=== PATIENT | male | born 1975 | race Caucasian/White ===

== ENCOUNTER 2017-04-08 07:51 | Observation (INO) | payer BC ==
[2017-04-08] VITALS (17 sets, daily range): BP systolic 104–159; BP diastolic 62–95; PULSE 43–91; TEMP 36.5–36.8; O2SAT 92–100; Ht 162.6 cm; Wt 75.3 kg
[~2017-04-08] VITALS: Ht 162.6 cm; Wt 75.3 kg
[~2017-04-08 07:51] MED LIST: ASPI325T60 PO; SULF800T23 PO
--- NOTE | 2017-04-08 08:20 | History & Physical Bridge Note ---
H&P Re-Evaluation Bridge Note: I have examined the patient, reviewed the History & Physical and in the interval since the performance of the History & Physical I have noted the following changes of clinical significance: No changes noted
--- NOTE | 2017-04-08 08:21 | Pre Sedation Assessment ---
Pre Sedation Assessment General Date of Sedation: Apr 08, 2017. Review Cardiovascular: no edema, no murmur, + bradycardia, + irregularly irregular Lungs: lungs clear, normal breath sounds Pre-Sedation Airway Assessment Smoking Status: Never Smoker Hx of Sleep Apnea: Yes Hx of difficult intubation: No Short Thick Neck: No Thyro-mental Distance: < or =3 Finger Breadths Oral Cavity: Dental Abnormalities Mallampati Classification: Class II ASA Classification: Class II Procedure Planning Contraindications for Sedation: None Current Medications Reviewed: Yes Notes The planned sedation has been discussed with the patient. Informed Consent was obtained. I have identified the patient, determined the appropriateness of sedation and have assessed the patient immediately prior to the procedure. All medicine(s) and interventions are by my order.
--- NOTE | 2017-04-08 08:40 | History & Physical Bridge Note ---
H&P Re-Evaluation Bridge Note: I have examined the patient, reviewed the History & Physical and in the interval since the performance of the History & Physical I have noted the following changes of clinical significance: Patient recently seen as an outpatient by Dr Aguilar on 04/02/17. No presents for planned repeat ablation therapy. EKg on 04/02/17 revealed rate controlled atrial flutter. Since he has not been on anticoagulation YURY planned this am in advance of repeat flutter ablation to exclude LA appendage thrombus. Informed consent has been obtained by Dr Aguilar for EP procedure today. Informed consent obtained by the undersigned for YURY with moderate sedation. No changes noted
[2017-04-08] MEDS ORDERED: FENTANYL CITRATE INJ 50 MCG/1 ML 2 ML VIAL ONE ×3 (09:26→11:11)
[2017-04-08] MEDS ORDERED: BENZOCAIN/TETRACA/BUTAM SPRAY 200 APPLN/20 GM SPRY ONE (09:26)
[2017-04-08] MEDS ORDERED: LIDOCAINE HCL 2% VISC SOLN 20 ML UDC ONE (09:27)
[2017-04-08] MEDS ORDERED: CANNULA ONE (09:27)
[2017-04-08] MEDS ORDERED: MIDAZOLAM HCL 1 MG/ML 2ML VIAL ONE ×3 (09:27→11:53)
--- NOTE | 2017-04-08 09:41 | Pre Sedation Assessment ---
Pre Sedation Assessment General Date of Sedation: Apr 08, 2017. Vital Signs Past 12 Hours Date Time Temp Pulse Resp B/P (MAP) Pulse Ox O2 Delivery O2 Flow Rate FiO2 04/08/17 08:53 36.8 64 12 136/83 (100) 98 Room Air Review Cardiovascular: no edema, no murmur, + bradycardia, + irregularly irregular Lungs: lungs clear, normal breath sounds Pre-Sedation Airway Assessment Smoking Status: Never Smoker Hx of Sleep Apnea: Yes Hx of difficult intubation: No Short Thick Neck: No Thyro-mental Distance: > 3 Finger Breadths Oral Cavity: WNL Mallampati Classification: Class III ASA Classification: Class I NPO Status Date of Last Intake of Fluids: Apr 07, 2017 Time of Last Intake of Fluids: 2358 Date of Last Intake of Solids: Apr 07, 2017 Time of Last Intake of Solids: 2358 Procedure Planning Contraindications for Sedation: None Current Medications Reviewed: Yes Notes The planned sedation has been discussed with the patient. Informed Consent was obtained. I have identified the patient, determined the appropriateness of sedation and have assessed the patient immediately prior to the procedure. All medicine(s) and interventions are by my order.
--- NOTE | 2017-04-08 10:05 | Post Sedation Assessment ---
Post Sedation Assessment General Date of Sedation Apr 08, 2017. Vital Signs: Vital Signs Past 12 Hours Date Time Temp Pulse Resp B/P (MAP) Pulse Ox O2 Delivery O2 Flow Rate FiO2 04/08/17 08:53 36.8 64 12 136/83 (100) 98 Room Air Post Procedure Recovery Score Activity: (2) Moves 4 extremities * Respiration: (2) Deep breath/cough Circulation: (2) +/-20% PreAnes Value Consciousness: (1) Arouseable (by name) Oxygen Saturation: (2) > 92% On Room Air Discharge Sedation Level of Care: Phase I Post Sedation Plan On clinical assessment, the patient appears to have tolerated the sedation without complications. Patient is recovering as anticipated. Patient will continue to be monitored by nursing and may be discharged when sedation discharge criteria are met per below protocol. Upon Completions of procedure and additional 15 minutes continue every 5 minute vital signs and the P.A.R. score; then discharge to a Phase I or Fast Track to Phase II per the following guidelines: * Discharge Patient to appropriate Phase II area if PAR is 8 or greater or return to pre- procedure baseline. The post - procedure orders will be as directed. * If PAR score is less than 8 or not return to pre-procedure baseline then patient will follow Phase I monitoring till PAR is reached for Phase II. The Phase I may be done in procedure room or may call to secure a Phase I area. * If naloxone or flumazenil are used for reversal, hold in Phase I for an additional 60 -120 minutes before discharge to Phase II. Please call the Sedation Physician to re-evaluate and complete post-note for discharge to Phase II area. Do NOT discharge from procedure sedation or Phase 1 until post- sedation evaluation note is complete by procedure /sedation MD Sedation Discharge Instructions to be given to the patient at discharge to home.
--- NOTE | 2017-04-08 10:09 | Cardiology Procedure Brief Nt ---
Preliminary Cardiology Note Procedure Date Apr 08, 2017. Pre-Procedure Diagnosis atrial flutter Post-Procedure Diagnosis No left atrial or left atrial appendage thrombus Procedure(s) Performed YURY Stockroom Clerk Branden Montero DO Shop Router(s) JUANITA Miles Estimated Blood Loss none Preliminary Findings Atrial flutter with controlled ventricular response was present during the YURY. There was no left atrial thrombus. There was no left atrial appendage thrombus. The LV and RV chamber size and systolic function were normal. The interatrial septum was intact without PFO or ASD. Recommendations Proceed with EP procedure as planned. Specimens non applicable Anesthesia Versed 4 mg IV, Fentanyl 125 mcg Complication(s) None Disposition Transition to Pre EP staging area after recovery.
[2017-04-08] MEDS ORDERED: LIDOCAINE HCL 2% 2 ML VIAL (20MG/ML) ONE (11:11)
[2017-04-08] MEDS ORDERED: PRLSR20 PO (11:13)
[2017-04-08] MEDS ORDERED: TRMCR515 TOP (11:13)
[2017-04-08] MEDS ORDERED: PROPOFOL IV EMULSION 10 MG/ML 20 ML VIAL IV ONE (11:56)
[2017-04-08] MEDS ORDERED: ONDANSETRON INJ 2 MG/ML 2 ML VIAL ONE (11:56)
[2017-04-08] MEDS ORDERED: HEPARIN SOD (PORCINE) 1000 UNIT/ML 10 ML VIAL ONE (12:03)
[2017-04-08] MEDS ORDERED: FENTANYL CITRATE INJ 50 MCG/1 ML 2 ML VIAL IV PRN (12:30)
[2017-04-08] MEDS ORDERED: EpHEDrine SULFATE INJ 50 MG/ML AMP IV PRN (12:30)
[2017-04-08] MEDS ORDERED: ONDANSETRON INJ 2 MG/ML 2 ML VIAL IV PRN (12:30)
[2017-04-08] MEDS ORDERED: ATROPINE SULFATE 0.1 MG/ML 5ML SYR IV PRN (12:30)
--- NOTE | 2017-04-08 13:56 | [facility] Post Operative Brief Note ---
Immediate Operative Summary Operative Date Apr 08, 2017. Pre-Operative Diagnosis p atrial flutter Post-Operative Diagnosis same and bidirectional block across the CTI Procedure(s) Performed EPS, 3d mapping of the His bundle and C/S os, radiofrequency ablation of the CTI, synchronized cardioversion at 200J Surgeon violet damico Pharmacy Technician Surgeon(s) none Estimated Blood Loss <5cc Findings See Below see official report Fluids (cc crystalloids) 600cc Specimens none Drains None Anesthesia Type MAC Complication(s) none Disposition Accompanied Pt To Recover: yes Disposition: PCU
[2017-04-08] MEDS ORDERED: ACETAMINOPHEN 325 MG TAB PO PRN (14:00)
--- NOTE | 2017-04-08 14:03 | Discharge Summary ---
Discharge Summary Date of Service Apr 08, 2017. Discharge Summary Admission Date: 04/08/2017 Discharge Date: Apr 09, 2017 Discharge Disposition: Home Principal Diagnosis: p. atrial flutter Secondary Diagnoses/Problems: probably LA NENA Procedures: EPS, 3d mapping of the C/S Os and His bundle, radiofrequency ablation of the CTI for atrial flutter and synchronized cardioversion for AFib Medication Reconciliation Continued Medications: Omeprazole (Prilosec) 20 Mg Capcr 20 MG PO DAILY, CAP Triamcinolone Acet (Triamcinolone Acetonide) 45 Appln/15 Gm Cr 1 APPLN TOP BID for 30 Days, #30 GM Admission Information Physical Exam (per Admitting): aaox3, NAD Supple, No JVD Irregular S1/S2, no murmur CTA b/l No w/r/r Soft NT/ND No edema b/l LE no focal deficits Skin intact Hospital Course Pt admitted for elective redo atrial flutter ablation due to recurrent atrial flutter. He had a YURY prior to the EPS ablation procedure to ensure no LUIS thrombus with Dr. Montero. Then he underwent EPS with ablation of CTI (he was also in Atrial fib and required a synchronized cardioversion during the EPS and ablation for the atrial flutter). He was monitored overnight and discharged home in a stable condition. Total time spent on discharge = 30 minutes This includes examination of the patient, discharge planning, medication reconciliation, and communication with other providers. Discharge Instructions ACTIVITY RECOMMENDATIONS: It is common to feel weak and fatigue for a few days. * Do not drive or operate any motorized equipment for the next 1 day. * Limit stair usage (2 or 3 trips a day only) for the next three days. * Do not lift anything heavier than 10 pounds for the next 7 days. * Do not engage in vigorous exercise or any sports for the next five days. * You may shower the day after your procedure, but do not immerse the area for three days. Cleanse the site gently with soap and water. SPECIAL CARE INSTRUCTIONS: * You may replace the pressure dressing or band-aid the morning after the procedure. * After your procedure, it is normal to have a small bruise or small lump at the site. Examine your site daily for any change in the bruise or lump, redness, swelling, drainage or numbness. Notify your doctor if any change. BLEEDING: * If there is a small amount of bleeding at the site, lie down and apply firm pressure with a clean cloth for ten minutes. When the bleeding stops, lie quietly keeping the procedure limb straight for six hours. Notify your doctor as soon as possible. * If the bleeding does not stop after ten minutes or if there is a large amount of bleeding or spurting, call 911 immediately. Continue to lie down and hold firm pressure until help arrives. SKIN IRRITATION: * You may experience some redness and/or swelling in the area where radiation was administered. If any skin irritation occurs, please contact your family physician. FOLLOW UP VISIT: Keep any scheduled doctor appointments.
--- NOTE | 2017-04-08 14:05 | Discharge Instructions ---
Discharge Instructions Date of Service Apr 08, 2017. Admission Reason for Admission: Atrial Flutter *Kylah Doing Neto* Discharge Discharge Diagnosis / Problem: p. atrial flutter Discharge Goals Goal(s): Improve function Activity Recommendations Activity Limitations: as noted below Lifting Limitations: no more than 10 pounds (do not do any heavy lifting or squating for 1 week) May Resume Sexual Activity: after one week, after two weeks Shower/Bathe: tomorrow Driving or Machine Use: resume 1 day after discharge . Instructions / Follow-Up Instructions / Follow-Up ACTIVITY RECOMMENDATIONS: It is common to feel weak and fatigue for a few days. * Do not drive or operate any motorized equipment for the next 1 day. * Limit stair usage (2 or 3 trips a day only) for the next three days. * Do not lift anything heavier than 10 pounds for the next 7 days. * Do not engage in vigorous exercise or any sports for the next five days. * You may shower the day after your procedure, but do not immerse the area for three days. Cleanse the site gently with soap and water. SPECIAL CARE INSTRUCTIONS: * You may replace the pressure dressing or band-aid the morning after the procedure. * After your procedure, it is normal to have a small bruise or small lump at the site. Examine your site daily for any change in the bruise or lump, redness, swelling, drainage or numbness. Notify your doctor if any change. BLEEDING: * If there is a small amount of bleeding at the site, lie down and apply firm pressure with a clean cloth for ten minutes. When the bleeding stops, lie quietly keeping the procedure limb straight for six hours. Notify your doctor as soon as possible. * If the bleeding does not stop after ten minutes or if there is a large amount of bleeding or spurting, call 911 immediately. Continue to lie down and hold firm pressure until help arrives. SKIN IRRITATION: * You may experience some redness and/or swelling in the area where radiation was administered. If any skin irritation occurs, please contact your family physician. FOLLOW UP VISIT: Keep any scheduled doctor appointments. Current Hospital Diet Patient's current hospital diet: Regular Diet Discharge Diet Recommended Diet: Regular Diet Procedures Procedures Performed: EPS, 3d mapping of the His bundle and C/S os, radiofrequency ablation of the CTI, synchronized cardioversion at 200J Pending Studies Studies pending at discharge: no Medical Emergencies . Who to Call and When: Medical Emergencies: If at any time you feel your situation is an emergency, please call 911 immediately. . Non-Emergent Contact Non-Emergency issues call your: [employer] Tallier . . "Provider Documentation" section prepared by Arlen Aguilar. . VTE Core Measure Inpt VTE Proph given/why not?: Treatment not indicated
[2017-04-08] MEDS ORDERED: PROPOFOL IV EMULSION 10 MG/ML 100 ML VIAL IV ONE (14:10)
--- NOTE | 2017-04-08 14:24 | Anesthesiology Progress Note ---
Anesthesia Post Op Note Date & Time Apr 08, 2017 at 14:24 Vital Signs Pain Intensity: 0 Vital Signs Past 12 Hours Date Time Temp Pulse Resp B/P (MAP) Pulse Ox O2 Delivery O2 Flow Rate FiO2 04/08/17 14:10 66 16 120/74 (89) 98 Room Air 04/08/17 14:00 67 16 123/79 (94) 99 Mask 4 04/08/17 11:10 57 16 125/68 (87) 96 Room Air 04/08/17 10:57 36.6 72 16 104/64 (77) 97 Room Air 04/08/17 10:45 65 16 104/86 (92) 97 Room Air 04/08/17 10:23 74 12 106/62 (77) 95 Room Air 04/08/17 10:13 80 10 120/77 (91) 96 Room Air 04/08/17 10:03 94 12 116/53 (74) 94 Nasal Cannula 2 04/08/17 10:00 91 14 128/63 93 Nasal Cannula 2 04/08/17 09:55 79 9 159/74 95 Nasal Cannula 2 04/08/17 09:50 80 12 132/88 96 Nasal Cannula 2 04/08/17 09:47 Nasal Cannula 2 04/08/17 09:45 79 13 121/68 93 Nasal Cannula 2 04/08/17 09:43 72 14 119/62 92 Nasal Cannula 2 04/08/17 09:39 75 24 140/85 100 Nasal Cannula 2 04/08/17 08:53 36.8 64 12 136/83 (100) 98 Room Air Notes Mental Status: alert / awake / arousable, participated in evaluation Nausea / Vomiting: adequately controlled Pain: adequately controlled Airway Patency, RR, SpO2: stable & adequate BP & HR: stable & adequate Hydration State: stable & adequate Anesthetic Complications: no major complications apparent
[2017-04-08] MEDS ORDERED: IV FLUIDS COMPLETED PRN (14:30)
--- NOTE | 2017-04-08 18:17 | TEE ---
*NOTICE TO RECEIVING DEMOCRAT AGENCY This information is strictly Confidential and protected under [place] law. [place] law prohibits you from making any further disclosure of this information unless further disclosure is expressly permitted by the written consent of the person to whom it pertains or is authorized by law. A general authorization for the release of medical or other information is not sufficient for this purpose. Hospital accepts no responsibility if the information is made available to any other person, INCLUDING THE PATIENT. Interpretation Summary * Name: GARLAND WOLFE Study Date: 04/08/2017 08:32 AM BP: 104/85 mmHg * Patient Location: Cardiopulmonary Lab HR: 94 * : 1975 (M/d/yyyy) Gender: Male Height: 65 in * Age: 42 yrs Ethnicity: CA Weight: 160 lb * Ordering Physician: Fanta Aguilar * Performed By: Yovani Gallagher RCS * * Reason For Study: A-Flutter, exclude left atrial thrombus prior to ablation * BSA: 1.8 m2 * -- Conclusions -- * No thrombus is detected in the left atrial appendage. * No left atrial mass or thrombus visualized. * There is trace mitral regurgitation. * There is a very subtle thin linear echodensity on the left atrial aspect of the posterior mitral valve leaflet consistent with a Lambl's excrescence. Procedure Details * YURY Probe #2 utilized for procedure. * The study was performed in Cardiopulmonary Department. * Time out was conducted by the physician, nurse, and medication reconciliation technician with positive identification of patient and procedure. * Informed consent for Transesophageal Echocardiogram was obtained prior to the procedure. * An intravenous line was placed. A topical anesthetic agent was used for oropharangeal anesthesia. A bite block was inserted. * The patient's vital signs, including blood pressure, heart rate, pulse oximetry and cardiac rhythm were monitored throughout the procedure . * Fentanyl 125 mcg was administered for procedural sedation. * Midazolam 4 mg administered for sedation. * A multifrequency, multiplane transesopheageal echocardiographic endoscope was inserted and manipulated in the standard fashion to achieve multiplane views. * The transesophageal probe was passed without difficulty. * Procedure Start Time - 938 Procedure Stop Time - 1001 * Contrast injection with agitated saline was performed. * The usual views were obtained; basal, mid-esophageal, transgastric and aortic views. * The patient tolerated the procedure well without evidence of orophangeal or esophageal trauma. * A 2D transesophageal echocardiogram was performed. * A 2D transesophageal echocardiogram with color flow Doppler was performed. * A 2D transesophageal echocardiogram with Doppler and color flow Doppler was performed. Left Ventricle * The left ventricle is normal in size. * There is normal left ventricular wall thickness. * Left ventricular systolic function is normal. * Ejection Fraction = 55-60%. * The left ventricular wall motion is normal. Right Ventricle * The right ventricle is normal in size and function. Atria * The left atrium is mildly dilated. * No thrombus is detected in the left atrial appendage. * No left atrial mass or thrombus visualized. * Right atrial size is normal. * The interatrial septum is intact with no evidence for an atrial septal defect. Mitral Valve * The mitral valve anatomy is normal. * There is a very subtle thin linear echodensity on the left atrial aspect of the posterior mitral valve leaflet consistent with a Lambl's excrescence. * There is no mitral valve stenosis. * There is trace mitral regurgitation. Tricuspid Valve * The tricuspid valve is normal. * There is no tricuspid stenosis. * Significant tricuspid regurgitation is absent. Aortic Valve * The aortic valve is trileaflet. * No hemodynamically significant valvular aortic stenosis. * No aortic regurgitation is present. Pulmonic Valve * The pulmonic valve is not well seen, but is grossly normal. Great Vessels * The aortic root is normal size. Pericardium * There is no pericardial effusion.
[2017-04-09 00:01] VITALS: O2SAT 98
[2017-04-09 03:38] VITALS: BP 143/82; PULSE 68; TEMP 36.7; O2SAT 95
[2017-04-09 07:56] VITALS: BP 124/78; PULSE 77; TEMP 36.6; O2SAT 98
--- NOTE | 2017-04-09 08:10 | OPERATIVE REPORT ---
DATE OF OPERATION: 04/08/2017 PREOPERATIVE DIAGNOSIS: Recurrent paroxysmal atrial flutter. POSTOPERATIVE DIAGNOSES: Recurrent paroxysmal atrial flutter, bidirectional block along the cavotricuspid isthmus. PROCEDURE: Electrophysiology study, 3D mapping of the His bundle region as well as the coronary sinus os. Radiofrequency ablation of the cavotricuspid isthmus (empiric line). Synchronized cardioversion at 200 joules secondary to intraoperative AFib. SURGEON: Arlen Aguilar DO MACHINIST MECHANIC: None. ANESTHESIA: Monitored anesthetic care administered via anesthesiology. A total of 4 mg of Versed, 100 mcg of fentanyl, 60 mg of lidocaine, 730 mg of propofol, 4 mg of Zofran. IV FLUIDS: 600 mL. BLOOD LOSS: Less than 5 mL. URINE OUTPUT: Not applicable. SPECIMENS: None. FINDINGS: See below. DRAINS: None. INDICATIONS: This is a 42-year-old gentleman who has past medical history for paroxysmal atrial flutter, which he underwent a cavotricuspid isthmus line back in January 2015. However, had recurrent atrial flutter and so was recommended a repeat redo. He also has obstructive sleep apnea, currently not on CPAP. CONSENT: Consent was obtained prior to patient going into electrophysiology lab. The patient was informed of risks, benefits and alternatives to the procedure. Risks include but not limited to sudden cardiac , cardiac arrhythmias, cerebrovascular accident, myocardial infarction; injury to the blood vessels, chamber of the heart or the [place]hoe electrical system where he would need a permanent pacemaker; bleeding and infection. The patient understood these risks and agreed to undergo the procedure as planned. Informed consent was obtained. DESCRIPTION OF PROCEDURE: The patient was brought into the electrophysiology lab in a fasting state. He was connected to continuous preformer impregnated fabrics. A timeout was performed to ensure patient's identity and procedure correctly. The patient was prepped and draped over the bilateral groins in normal surgical standard fashion. Monitored anesthetic care was given throughout the procedure for patient's comfort level. [place] precautions were maintained throughout the procedure. Prior to patient coming into the electrophysiology lab, he had a YURY to confirm that there was no left atrial thrombus by my partner Dr. Montero and this looked good. Using modified Seldinger technique, venous access was obtained in the following manner. Left femoral groin had two 7-Syrian sheaths followed by 20 Halo catheter positioned down in the high right atrium. Then a 7-Syrian sheath followed by a Biosense Decapolar catheter coronary sinus FJ catheter positioned down in the coronary sinus. A right femoral vein initially had a 6-Syrian sheath which was swapped out for an SRO followed by the Biosense DF curve SmartTouch ThermoCool ablation catheter. With the catheters in position, the patient was found to be in atrial fibrillation, so we did a synchronized cardioversion at 200 joules and restored sinus rhythm. Baseline intervals are as follows; ME interval 184, QRS 98, QT 382, AH 128, HV 54, measuring coronary sinus proximal to halo distal was 76 milliseconds, measuring pacing halo distal to coronary sinus proximal was 84 milliseconds. We did 3D mapping of the His bundle coronary sinus os. We set up to do ablation since there was no longer block along the cavotricuspid isthmus line. We started giving a series of reyna 35 ann from the tricuspid valve all the way down to the IVC. There was some ridges and pocket, so I went medial and lateral around these. Once it looked like we had adequate block during our waiting, I did an electrophysiology study with the following findings: ME interval 176 milliseconds, QRS 86 milliseconds, QT 340 milliseconds, AH 96 milliseconds, HV 46 milliseconds, AV Wenckebach 460 milliseconds, AV NRP 600/390 and 500/390, atrial ERP 600/230 and 500/210, right ventricular ERP 600/240 and 400/220. Pacing coronary sinus measuring the Halo distal lateral to align was 160 milliseconds. Pacing Halo distal and measuring to coronary sinus had 158 milliseconds. All the catheters were then pulled from the body and the sheaths were pulled and manual compression was held to establish hemostasis. IMPRESSION: 1. Bidirectional block along the cavotricuspid isthmus (empiric line). 2. Paroxysmal atrial fibrillation status post cardioversion. 3. Sinus bradycardia. 4. Normal atrioventricular isabel pathology. PLAN: Monitor patient overnight, 12-lead ECG. He is not to do any heavy lifting or squatting for 1 week. He should follow up in our office in 1 month. He can continue his home medications and he will be reevaluated for obstructive sleep apnea. I attest to the content of the Intraoperative Record and any orders documented therein. Any exception s are noted below.
[2017-04-09 09:57] VITALS: BP 124/78; PULSE 77; TEMP 36.6; O2SAT 98
== END 2017-04-09 10:34 | disposition home or self-care (01) ==
LOC: C.EP 07:51 → ENRESERV 13:20 → C.2T 13:59
PROVIDERS: ADMIT Internal Medicine; ATTEND Internal Medicine
DX: I48.92 Unspecified atrial flutter (principal); I48.0 Paroxysmal atrial fibrillation; G47.33 Obstructive sleep apnea (adult) (pediatric); R00.1 Bradycardia, unspecified; Z88.0 Allergy status to penicillin; Z88.1 Allergy status to other antibiotic agents